=== PATIENT | male | born 1955 | race Caucasian/White ===

== ENCOUNTER → 2016-09-04 | Outpatient (CLI) | payer BC | LOC: RAD 09:24 | DX: N28.89 Other specified disorders of kidney and ureter (principal) | CPT/HCPCS: Q9967 ==

== ENCOUNTER → 2017-05-19 | Day surgery (SDC) | payer BC | LOC: MSO 07:03 | DX: Z12.11 Encounter for screening for malignant neoplasm of colon (principal); K57.30 Diverticulosis of large intestine without perforation or abscess without bleeding; I10 Essential (primary) hypertension; C64.9 Malignant neoplasm of unspecified kidney, except renal pelvis; R01.1 Cardiac murmur, unspecified; N19 Unspecified kidney failure; K64.4 Residual hemorrhoidal skin tags | CPT/HCPCS: 00810; J2704; J7120 ==

== ENCOUNTER 2019-06-10 09:30 | Outpatient (RCR) | payer MEDICARE, OTHER | END 2019-06-10 10:00 | disposition still patient (30) | LOC: PT 09:30 | DX: M25.551 Pain in right hip (principal); M25.552 Pain in left hip ==

== ENCOUNTER → 2021-11-19 | Outpatient (CLI) | payer MEDICARE, OTHER | LOC: RAD 06:47 | DX: M25.531 Pain in right wrist (principal) | CPT/HCPCS: A9585; Q9967 ==

== ENCOUNTER → 2022-08-29 | Outpatient (CLI) | payer MEDICARE, OTHER | LOC: RAD 09:54 | DX: J40 Bronchitis, not specified as acute or chronic (principal) ==